=== PATIENT | female | born 1975 | race Asian ===

== ENCOUNTER → 2016-11-22 | Outpatient (CLI) | payer OTHER | END | disposition home or self-care (01) | LOC: LABPV 10:26 | PROVIDERS: ATTEND Orthopaedic Surgery | DX: Z01.818 Encounter for other preprocedural examination (principal); S86.011A Strain of right Achilles tendon, initial encounter; X58.XXXA Exposure to other specified factors, initial encounter; Y93.9 Activity, unspecified; Y92.9 Unspecified place or not applicable; Y99.9 Unspecified external cause status | CPT/HCPCS: 85018 ==